=== PATIENT | male | born 1985 | race African-American/Black ===

== ENCOUNTER 2022-12-09 16:01 | Emergency (ER) | payer MEDICAID ==
[~2022-12-09] VITALS: Ht 182.9 cm; Wt 86.0 kg
[2022-12-09 16:05] VITALS: O2SAT 97
[2022-12-09] MEDS ORDERED: ACETAMINOPHEN 325MG TABLET PO STA (18:28)
[2022-12-09 20:46] VITALS: BP 128/88; PULSE 75; RESP 20; TEMP 99.1
== END 2022-12-09 20:49 | disposition home or self-care (01) ==
LOC: ER 16:01
DX: J02.8 Acute pharyngitis due to other specified organisms (principal); Z20.822 Contact with and (suspected) exposure to COVID-19
CPT/HCPCS: 99283; 87426; 87430; 87070; 87077; C9803

== ENCOUNTER 2023-11-20 15:19 | Emergency (ER) | payer BC, MEDICAID ==
[~2023-11-20] VITALS: Ht 182.9 cm; Wt 83.0 kg
[2023-11-20 15:37] VITALS: BP 145/81; PULSE 73; RESP 16; TEMP 98.3; O2SAT 98
[2023-11-20] MEDS ORDERED: BENZ100C86 MT (18:23)
== END 2023-11-20 19:07 | disposition home or self-care (01) ==
LOC: ER 15:19
DX: J20.9 Acute bronchitis, unspecified (principal)
CPT/HCPCS: 99283

== ENCOUNTER 2024-01-21 11:27 | Emergency (ER) | payer MEDICAID ==
[~2024-01-21] VITALS: Ht 182.9 cm; Wt 81.0 kg
[~2024-01-21 11:27] MED LIST: BENZ100C86 MT
[2024-01-21 11:53] VITALS: BP 145/97; O2SAT 95
[2024-01-21] MEDS ORDERED: IBUP-2028 MT (12:13)
[2024-01-21] MEDS: ACETAMINOPHEN 325MG TABLET PO ONE (12:38)
[2024-01-21 12:40] VITALS: PULSE 82; RESP 18; TEMP 36.94740; O2SAT 97
== END 2024-01-21 12:40 | disposition home or self-care (01) ==
LOC: ER 11:27
DX: M54.50 Low back pain, unspecified (principal)
CPT/HCPCS: 99282